=== PATIENT | female | born 1980 | race African-American/Black ===

== ENCOUNTER 2020-09-06 08:39 | Emergency (ER) | payer MEDICAID ==
[~2020-09-06] VITALS: Ht 167.6 cm; Wt 113.0 kg
[~2020-09-06 08:39] MED LIST: [UNRECOGNIZED DRUG - OTHER] OR
[2020-09-06] MEDS ORDERED: BACTRIM DS1 TAB PO ×2 (08:57→09:09)
[2020-09-06] MEDS ORDERED: OMNI-PAC300 MG PO ×2 (08:57→09:09)
[2020-09-06 09:05] VITALS: BP 132/62
== END 2020-09-06 09:15 | disposition home or self-care (01) ==
LOC: ED 08:39
DX: T81.41XA Infection following a procedure, superficial incisional surgical site, initial encounter (principal); L03.311 Cellulitis of abdominal wall; Y83.8 Other surgical procedures as the cause of abnormal reaction of the patient, or of later complication, without mention of misadventure at the time of the procedure

== ENCOUNTER 2022-01-08 14:30 | Emergency (ER) | payer OTHER, MEDICAID ==
[~2022-01-08] VITALS: Ht 167.6 cm; Wt 105.0 kg
[~2022-01-08 14:30] MED LIST changes: +BACTRIM DS1 TAB PO; +OMNI-PAC300 MG PO
[2022-01-08 14:48] VITALS: BP 146/94
[2022-01-08] MEDS ORDERED: FLEXERIL5 M1 PO (17:14)
[2022-01-08 17:22] VITALS: BP 146/94
== END 2022-01-08 17:35 | disposition home or self-care (01) | DRG 552 ==
LOC: ED 14:30
DX: M54.2 Cervicalgia (principal); E66.3 Overweight; V49.40XA Driver injured in collision with unspecified motor vehicles in traffic accident, initial encounter

== ENCOUNTER 2022-10-27 22:38 | Emergency (ER) | payer OTHER, MEDICAID ==
[~2022-10-27] VITALS: Ht 167.6 cm; Wt 220.0 kg
[~2022-10-27 22:38] MED LIST changes: +FLEXERIL5 M1 PO
[2022-10-27 23:00] VITALS: BP 130/77
[2022-10-28 00:52] VITALS: BP 130/77
== END 2022-10-28 00:55 | disposition home or self-care (01) | DRG 556 ==
LOC: ED 22:38
DX: M79.662 Pain in left lower leg (principal); M79.661 Pain in right lower leg; V43.52XA Car driver injured in collision with other type car in traffic accident, initial encounter